=== PATIENT | male | born 1985 | race Caucasian/White ===

== ENCOUNTER 2016-05-23 11:34 | Emergency (ER) | payer MEDICAID ==
[~2016-05-23] VITALS: Ht 182.9 cm; Wt 98.2 kg
[~2016-05-23 11:34] MED LIST: AMOX1TAB67 PO; BACTDS PO; CEPH-443 PO; CEPH250S33 PO; PERM120L5 TP
[2016-05-23 11:44] VITALS: Ht 182.9 cm; Wt 98.2 kg
[2016-05-23] MEDS ORDERED: CLIN-73 PO (13:53)
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
== END 2016-05-23 15:10 | disposition home or self-care (01) ==
LOC: FTE 11:34
DX: R21 Rash and other nonspecific skin eruption (principal)
CPT/HCPCS: 99283

== ENCOUNTER 2016-06-01 20:29 | Emergency (ER) | payer MEDICAID ==
[~2016-06-01] VITALS: Ht 177.8 cm; Wt 102.0 kg
[~2016-06-01 20:29] MED LIST changes: +CLIN-73 PO
[2016-06-01 20:47] VITALS: Ht 177.8 cm; Wt 102.0 kg
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
[2016-06-01 21:30] LABS: ADD SCAN DIFF NO
[2016-06-01 21:33] LABS: BASOPHIL # 0.1 10^3/ul (0.0-0.1); BASOPHILS % 0.9 % (0.0-2.0); EOSINOPHILS # 0.3 10^3/ul (0.0-0.5); EOSINOPHILS % 5.3 % (0.0-7.0); HEMOGLOBIN 14.4 g/dl (14.0-18.0); LYMPHOCYTES # 1.9 10^3/ul (0.8-2.9); LYMPHOCYTES % 36.7 % (15.0-51.0); MEAN CORPUSCULAR HEMOGLOBIN 32.8 pg (29.0-33.0); MEAN CORPUSCULAR HGB CONC 35.1 g/dl (32.0-37.0); MEAN CORPUSCULAR VOLUME 93.4 fl (82.0-101.0); MEAN PLATELET VOLUME 9.9 fl (7.4-10.4); MONOCYTE # 0.5 10^3/ul (0.3-0.9); MONOCYTES % 10.2 % (0.0-11.0); NEUTROPHIL # 2.5 10^3/ul (1.6-7.5); NEUTROPHILS % 46.7 % (39.0-77.0); PLATELET COUNT 261 10^3/UL (140-415); RED BLOOD COUNT 4.39 10^6/ul (4.70-6.10); RED CELL DISTRIBUTION WIDTH 11.5 % (11.5-14.5); WHITE BLOOD COUNT 5.3 10^3/ul (4.8-10.8)
[2016-06-01 21:48] LABS: ALBUMIN 4.4 g/dl (3.3-4.9); CHLORIDE 103 mmol/L (97-110)
[2016-06-01 21:49] LABS: POTASSIUM 3.7 mmol/L (3.5-5.1); SODIUM 140 mmol/L (135-144)
[2016-06-01 21:51] LABS: ALANINE AMINOTRANSFERASE 32 IU/L (13-69); ALBUMIN/GLOBULIN RATIO 1.29; ALKALINE PHOSPHATASE 63 IU/L (42-121); ANION GAP 16 (8-16); ASPARTATE AMINO TRANSFERASE 31 IU/L (15-46); BILIRUBIN,INDIRECT 0.9 mg/dl (0-1.1); BILIRUBIN,TOTAL 0.9 mg/dl (0.2-1.3); BLOOD UREA NITROGEN 11 mg/dl (7-20); CALCIUM 8.7 mg/dl (8.4-10.2); CARBON DIOXIDE 25 mmol/L (21-31); CREATININE 0.82 mg/dl (0.61-1.24); GLUCOSE 73 mg/dl (70-220); TOTAL PROTEIN 7.8 g/dl (6.1-8.1)
[2016-06-01 21:54] LABS: ACETAMINOPHEN < 10.0 ug/ml (10.0-30.0); ETHANOL < 10.0 mg/dl; SALICYLATE < 1.0 mg/dl (5.0-30.0)
[2016-06-01 22:45] LABS: ADD UMIC NO; URINE BILIRUBIN (Dip) NEGATIVE (NEGATIVE); URINE BLOOD (Dip) NEGATIVE (NEGATIVE); URINE COLOR LT. YELLOW (YELLOW); URINE GLUCOSE (Dip) NEGATIVE (NEGATIVE); URINE KETONES (Dip) NEGATIVE (NEGATIVE); URINE LEUKOCYTE ESTERASE (Dip) NEGATIVE (NEGATIVE); URINE NITRITE (Dip) NEGATIVE (NEGATIVE); URINE TOTAL PROTEIN (Dip) NEGATIVE (NEGATIVE); URINE UROBILINOGEN (Dip) 1.0 E.U./dL (0.1-1.0)
[2016-06-01 23:00] LABS: BARBITURATES Negative (NEGATIVE); BENZODIAZEPINES Negative (NEGATIVE); CANNABINOIDS Positive (NEGATIVE); COCAINE Negative (NEGATIVE); OPIATES Negative (NEGATIVE)
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
[2016-06-02 08:23] VITALS: BP 115/55; PULSE 65; RESP 18; TEMP 97.9
== END 2016-06-02 10:11 ==
LOC: E/R 20:29
DX: F32.9 Major depressive disorder, single episode, unspecified (principal); R45.851 Suicidal ideations
CPT/HCPCS: 36415; 80053; 80306; 80307; 81003; 85025; Z7502; 99285

== ENCOUNTER 2016-06-10 21:56 | Emergency (ER) | payer MEDICAID ==
[~2016-06-10] VITALS: Wt 102.0 kg
[2016-06-10] MEDS ORDERED: CEPH-443 PO (23:27)
[2016-06-10] MEDS ORDERED: HC1C30 TOP (23:27)
--- NOTE | 2016-06-10 23:30 | ERD ---
ER Documentation Chief Complaint Date/Time DATE: 06/10/16 TIME: 23:28 Chief Complaint Rash on the chest area HPI Patient is a 31-year-old male who presents with a rash on his chest wall that he has had on and off for 5-6 months. He states he believes it is folliculitis and he has had this in the past and has had good relief with Keflex and hydrocortisone cream. He states it is not itchy. Denies fever. Denies any irritants that he can think of. Denies any pain. ROS All systems reviewed and are negative except as per history of present illness. Medications Home Meds Active Scripts Cephalexin* (Keflex*) 500 Mg Capsule, 500 MG PO QID for 7 Days, CAP Prov:DIANE PATTERSON PA-C 06/10/16 Hydrocortisone* Topical (Hydrocortisone* Topical) 1%-28.35 Gm Cream..g., 1 APPLIC TOP Q6 Y for ITCHING, #1 TUB Prov:DIANE PATTERSON PA-C 06/10/16 Allergies Allergies: Coded Allergies: sulfamethoxazole (Verified Allergy, Mild, 06/01/16) PMhx/Soc History of Surgery: Yes (Left Lower Back Abscess Surgery) Anesthesia Reaction: No Hx Neurological Disorder: No Hx Respiratory Disorders: No Hx Cardiac Disorders: No Hx Psychiatric Problems: Yes (Anxiety;Paranoia) Hx Miscellaneous Medical Probl: Yes (SCHIZOPHRENIA ) Hx Alcohol Use: Yes Hx Substance Use: No Hx Tobacco Use: No Smoking Status: Never smoker FmHx Family History: No diabetes Physical Exam Vitals Vital Signs Date Time Temp Pulse Resp B/P Pulse Ox O2 Delivery O2 Flow Rate FiO2 06/10/16 22:09 97.6 80 18 141/100 98 Physical Exam General: well developed, well nourished, alert, nontoxic, no distress Head: normocephalic, atraumatic Respiratory: Clear to auscaultation bilaterally, speaks in full sentences, no use of accesory muscles or labored breathing, no rales, ronchi, or wheezing Cardiovascular: RRR, No murmurs Extremities: moving all extremities normally, normal gait, no edema Skin: chest wall has multiple small paular lesions, no surroudning erythema or edema Procedures/MDM 31-year-old male presents with rash. This is most likely folliculitis and he has had this in the past with good relief with Keflex and hydrocortisone cream which I will give a prescription for. Recommended this patient follow up with her primary care doctor within 48 hours or return to the emergency room for any worsening of symptoms. However this time I do believe there is suitable for outpatient management. I answered all their questions and they agreed with the plan and were discharged home. Departure Diagnosis: Primary Impression: Rash Condition: Stable Patient Instructions: Self-Care for Skin Rashes Additional Instructions: Call your primary care doctor TOMORROW for an appointment during the next 1-2 days.See the doctor sooner or return here if your condition worsens before your appointment time. DIANE PATTERSON PA-C June 10, 2016 23:30
== END 2016-06-10 23:41 | disposition home or self-care (01) ==
LOC: FTE 21:56
DX: R21 Rash and other nonspecific skin eruption (principal)
CPT/HCPCS: 99283